=== PATIENT | female | born 1980 | race Caucasian/White ===

== ENCOUNTER 2023-07-01 01:14 | Emergency (ER) | payer BC, SELFPAY ==
[2023-07-01 01:20] VITALS: BP 138/95; PULSE 92; RESP 17; TEMP 36.8; O2SAT 97; BMI 23.5
[2023-07-01 01:34] VITALS: BP 122/88; PULSE 67; RESP 18; O2SAT 99
[2023-07-01] MEDS: diphenhydrAMINE 50 mg/mL SDV 1mL 25 MG IVP (02:14)
[2023-07-01] MEDS: famotidine 20 mg/2 mL INJ 40 MG IVP (02:18)
--- NOTE | 2023-07-01 02:18 | W.ED.ALLEREA ---
HPI - Allergic Reaction General: Chief complaint: Allergic Reaction Stated complaint: Hives, Itching, throwing up Time Seen by Provider: 07/01/23 02:08 History of Present Illness: HPI narrative: 43-year-old female who was a [employer]. She had been out riding ATVs, etc. She began to get hives, and itchy throat, and nausea. Her drove her to the emergency department, she vomited on the way. She had taken 50 mg of oral Benadryl, but may have vomited most of it up. Hives are improved. Her throat is still a bit itchy. No facial swelling. No trouble breathing. Associated symptoms: Reports abdominal pain (resolved), nausea and vomiting; Deny hoarseness Review of Systems Const: Denies: fever(s) Eyes: Denies: change in vision ENMT: Denies: throat pain or hoarseness Card: Denies: chest pain Resp: Reports: dyspnea; Denies: productive cough or non-productive cough GI: Reports: abdominal pain (resolved), nausea and vomiting Physical Exam Const: COMMON NORMALS: no acute distress GENERAL APPEARANCE: cooperative; not ill appearing and not frail appearing HENMT: COMMON NORMALS: normocephalic, atraumatic and Normal external nose present HEAD & SCALP: normocephalic and atraumatic FACE & SINUS: normal facial exam and face symmetric NOSE: Normal external nose present Eye: COMMON NORMALS: Equal, round and reactive pupils present and EOMs intact bilaterally PUPIL: Yes Equal, round and reactive pupils present Neck/C-Spine: GENERAL: Yes trachea midline Chest: CHEST: Yes Symmetrical chest wall rise Resp: COMMON NORMALS: normal respiratory effort, No retractions, No use of accessory muscles and clear to auscultation bilaterally AUSCULTATION: clear to auscultation bilaterally Cardio: COMMON NORMALS: regular rate and regular rhythm RATE: regular rate RHYTHM: regular rhythm GI: COMMON NORMALS: Normal to inspection, nondistended, normoactive bowel sounds present Extremity: COMMON NORMALS: no pedal edema Neuro: MALVIN COMA SCALE: document GCS findings Malvin coma scale eye opening: Spontaneous Malvin coma scale verbal response: Orientated [place] coma scale motor response: Obey commands [place] coma scale total score: 15 SENSORY EXAM: Yes extremities (intact) Psych: COMMON NORMALS: speech normal SPEECH: Yes normal speech Skin: NARRATIVE SKIN EXAM: faint urticaria to the lower back. Course Vital Signs: Vital signs: Vital Signs Temperature 98.2 F 07/01/23 01:20 Pulse Rate 80 07/01/23 02:58 Respiratory Rate 16 07/01/23 02:58 Blood Pressure 109/79 07/01/23 02:58 Pulse Oximetry 98 07/01/23 02:58 Oxygen Delivery Me thod Room Air 07/01/23 01:20 MDM - Allergic Reaction Medical Decision Making Patient is improved. She has received IV Benadryl, only 25 mg as her hives are improved. She also received Solu-Medrol 125 mg, and Pepcid. With improvement she will be allowed home. Benadryl and steroids for the next few days. No radiology studies performed this visit Discharge Plan Discharge Patient Disposition: Home Clinical Impression: Allergic reaction Condition: Stable Prescriptions: New Medrol (Donaldo) 4 mg tablets,dose pack See Rx Instructions .ROUTE .COMPLEX Qty: 21 0RF Rx Instructions: orally per package directions Discharge Orders: Discharge ED (Routine); Ordered 07/01/23 Ordered By: Jonah Yoon Referrals: Austin Mendoza MD [Primary Care Provider] - 4-7 days Patient Instructions: Urticaria (ED), Allergies (ED) Activity Restrictions/Additional Instructions: Take Benadryl 3 times daily for the next 36 hours or so, then you may decrease dosage as symptoms subside. Other medication as directed. Return for any worsening symptoms. Coding Level of Care Code ED [employer] Vehicle Compliance Analyst for Nicci Lopez
[2023-07-01] MEDS: methylPREDNISolone sod succ 125 MG in water for injection-sterile 2 ML 24 MG IVP (02:22)
[2023-07-01 02:58] VITALS: BP 109/79; PULSE 80; RESP 16; O2SAT 98
== END 2023-07-01 02:57 | disposition home or self-care (01) ==
PROVIDERS: Emergency Provider Emergency Medicine; PCP Internal Medicine
DX: T78.40XA Allergy, unspecified, initial encounter (principal); X58.XXXA Exposure to other specified factors, initial encounter
CPT/HCPCS: 96374; 96375; 99284; J1200; J2930; J3490